=== PATIENT | male | born 1955 | race Caucasian/White ===

== ENCOUNTER 2017-04-17 18:57 | Inpatient (IN) | payer MEDICAID ==
[~2017-04-17] VITALS: Ht 167.6 cm; Wt 83.1 kg
[~2017-04-17 18:57] MED LIST: ATIVAN0.5 M1 PO; METOPROLOL TART25 M1 PO; NOR10 PO; PRI20 PO; ZES20 PO
[2017-04-17 20:47] LABS: CALCIUM 8.8 mg/dL (8.5-10.1); CARBON DIOXIDE 27.6 mmol/L (21-32); CHLORIDE SERUM 100 mmol/L (98-107); CREATININE SERUM 0.5 mg/dL (0.7-1.3); GFR1 > 60 mL/min; GLUCOSE SERUM 110 mg/dL (74-106); SODIUM SERUM 139 mmol/L (136-145)
[2017-04-17 20:49] LABS: BASOPHIL % 0.5 % (0-2)
[2017-04-17 20:52] LABS: ALBUMIN 3.4 g/dL (3.4-5.0); ALKALINE PHOSPHATASE 171 U/L (46-116); ALT/SGPT 34 U/L (16-63); AST/SGOT 122 U/L (15-37); BILIRUBIN TOTAL 2.02 mg/dL (0.20-1.00); LIPASE 182 IU/L (73-393); TOTAL PROTEIN, SERUM 8.8 g/dL (6.4-8.2)
[2017-04-17 20:53] LABS: PLATELET COUNT 77 x10^3mcL (130-400); RED CELL DISTRIBUTION WIDTH 15.4 % (11.5-14.5)
[2017-04-18] VITALS (7 sets, daily range): BP systolic 114–152; BP diastolic 64–91
[2017-04-18 02:22] LABS: PHOSPHOROUS 3.4 mg/dL (2.5-4.9)
[2017-04-18 02:26] LABS: FREE T4 1.53 ng/dL (0.76-1.46); FREE THYROXINE INDEX 3.4 ug/dL (1.4-4.5); T3 TOTAL 1.12 ng/mL; T4(THYROXINE) 10.6 ug/dL (4.7-13.3)
[2017-04-18 02:31] LABS: CHOLESTEROL/HDL RATIO 2.9
[2017-04-18 07:02] LABS: IRON 92 ug/dL (65-170); TOTAL IRON BINDING CAPACITY 236 ug/dL (250-450)
[2017-04-18 07:04] LABS: PLATELET COUNT 73 x10^3mcL (130-400); RED CELL DISTRIBUTION WIDTH 15.3 % (11.5-14.5)
[2017-04-18 07:34] LABS: CALCIUM 7.9 mg/dL (8.5-10.1); CARBON DIOXIDE 25.3 mmol/L (21-32); CHLORIDE SERUM 101 mmol/L (98-107); CREATININE SERUM 0.6 mg/dL (0.7-1.3); GFR1 > 60 mL/min; GLUCOSE SERUM 113 mg/dL (74-106); PHOSPHOROUS 2.9 mg/dL (2.5-4.9); POTASSIUM SERUM 3.2 mmol/L (3.5-5.1); SODIUM SERUM 137 mmol/L (136-145)
[2017-04-18 08:21] LABS: BAND NEUTROPHIL 33 % (0-10); MONOCYTE 3 % (0-7); SEGMENTED NEUTROPHILS 35 % (37-75)
[2017-04-18 08:22] LABS: BASOPHIL 0 % (0-2); METAMYELOCTE 1 % (0-2); PLATELET MORPHOLOGY PLATELETS DECREASED
[2017-04-18 08:23] LABS: rbc morphology (normal/abnorm) ABNORMAL (NORMAL)
[2017-04-18 08:24] LABS: target cell (codocyte) 1+
[2017-04-18 11:05] LABS: microscopic required? YES; urine erythrocyte NEGATIVE (NEGATIVE)
[2017-04-18 11:34] LABS: AMPHETAMINE QUAL UR NONE DETECTED (NEG <=1000)
[2017-04-19 05:36] VITALS: BP 149/85
[2017-04-19 06:37] LABS: BASOPHIL % 1.1 % (0-2)
[2017-04-19 06:43] LABS: CALCIUM 7.8 mg/dL (8.5-10.1); CARBON DIOXIDE 23.9 mmol/L (21-32); CHLORIDE SERUM 104 mmol/L (98-107); CREATININE SERUM 0.5 mg/dL (0.7-1.3); GFR1 > 60 mL/min; GLUCOSE SERUM 105 mg/dL (74-106); MAGNESIUM 1.8 mg/dL (1.8-2.4); PHOSPHOROUS 2.4 mg/dL (2.5-4.9); POTASSIUM SERUM 3.5 mmol/L (3.5-5.1); SODIUM SERUM 138 mmol/L (136-145)
[2017-04-19 06:57] LABS: PLATELET COUNT 83 x10^3mcL (130-400); RED CELL DISTRIBUTION WIDTH 15.3 % (11.5-14.5)
[2017-04-19 08:55] VITALS: BP 149/85
[2017-04-19] MEDS ORDERED: FOL1 PO (09:31)
[2017-04-19] MEDS ORDERED: THI100 PO (09:31)
[2017-04-19] MEDS ORDERED: ATI1 PO (09:31)
[2017-04-19 10:03] VITALS: BP 132/71
== END 2017-04-19 11:30 | disposition home or self-care (01) | DRG 775 ==
LOC: ED 18:57 → DU 23:38
PROVIDERS: Emergency Medicine; ADMIT Family Medicine
DX: F10.229 Alcohol dependence with intoxication, unspecified (principal); N17.0 Acute kidney failure with tubular necrosis; G92 Toxic encephalopathy; E44.0 Moderate protein-calorie malnutrition; E83.42 Hypomagnesemia; E83.39 Other disorders of phosphorus metabolism; D69.59 Other secondary thrombocytopenia; K70.30 Alcoholic cirrhosis of liver without ascites; E11.9 Type 2 diabetes mellitus without complications; D63.8 Anemia in other chronic diseases classified elsewhere; E87.6 Hypokalemia; R31.9 Hematuria, unspecified; E02 Subclinical iodine-deficiency hypothyroidism; T51.0X1A Toxic effect of ethanol, accidental (unintentional), initial encounter; R80.9 Proteinuria, unspecified; E78.5 Hyperlipidemia, unspecified; G31.9 Degenerative disease of nervous system, unspecified; Z68.29 Body mass index [BMI] 29.0-29.9, adult
CPT/HCPCS: 82962; 83880; 84439; C9113; G0480; J2060; J2405; J3411; J3475; J3480; J3490; J7030; J8597; Q0092

== ENCOUNTER 2017-06-25 20:39 | Emergency (ER) | payer SELFPAY ==
[~2017-06-25 20:39] MED LIST changes: +ATI1 PO; +FOL1 PO; +THI100 PO
[2017-06-25 23:00] LABS: PLATELET COUNT 60 x10^3mcL (130-400); RED CELL DISTRIBUTION WIDTH 16.4 % (11.5-14.5)
[2017-06-25 23:05] LABS: CARBON DIOXIDE 28.4 mmol/L (21-32); CHLORIDE SERUM 104 mmol/L (98-107); CREATININE SERUM 0.7 mg/dL (0.7-1.3); GFR1 > 60 mL/min; GLUCOSE SERUM 131 mg/dL (74-106); POTASSIUM SERUM 3.2 mmol/L (3.5-5.1); SODIUM SERUM 144 mmol/L (136-145)
[2017-06-25 23:10] LABS: ALKALINE PHOSPHATASE 157 U/L (46-116); ALT/SGPT 44 U/L (16-63); AST/SGOT 219 U/L (15-37); BILIRUBIN TOTAL 1.7 mg/dL (0.20-1.00); TOTAL PROTEIN, SERUM 8.1 g/dL (6.4-8.2)
[2017-06-25 23:13] LABS: ALBUMIN 3.3 g/dL (3.4-5.0)
[2017-06-25 23:24] VITALS: BP 147/76
== END 2017-06-25 23:24 | disposition home or self-care (01) ==
LOC: ED 20:39
PROVIDERS: Emergency Medicine
DX: F10.129 Alcohol abuse with intoxication, unspecified (principal); I10 Essential (primary) hypertension; R11.10 Vomiting, unspecified; R04.0 Epistaxis
CPT/HCPCS: 36415; Q0162

== ENCOUNTER 2017-06-27 05:49 | Inpatient (IN) | payer SELFPAY ==
[~2017-06-27] VITALS: Ht 167.6 cm; Wt 86.3 kg
[2017-06-27 06:45] LABS: BASOPHIL % 0.9 % (0-2); CALCIUM 8.2 mg/dL (8.5-10.1); CARBON DIOXIDE 25.3 mmol/L (21-32); CHLORIDE SERUM 108 mmol/L (98-107); CREATININE SERUM 0.6 mg/dL (0.7-1.3); GFR1 > 60 mL/min; GLUCOSE SERUM 150 mg/dL (74-106); POTASSIUM SERUM 3.3 mmol/L (3.5-5.1); SODIUM SERUM 148 mmol/L (136-145)
[2017-06-27 06:50] LABS: ALBUMIN 3.3 g/dL (3.4-5.0); ALKALINE PHOSPHATASE 146 U/L (46-116); ALT/SGPT 44 U/L (16-63); AST/SGOT 185 U/L (15-37); BILIRUBIN TOTAL 2.15 mg/dL (0.20-1.00); TOTAL PROTEIN, SERUM 7.9 g/dL (6.4-8.2)
[2017-06-27 07:15] LABS: PLATELET COUNT 64 x10^3mcL (130-400); RED CELL DISTRIBUTION WIDTH 16.8 % (11.5-14.5)
[2017-06-27 09:43] LABS: T3 TOTAL 0.89 ng/mL
[2017-06-27 09:44] LABS: CHOLESTEROL/HDL RATIO 2.3; MAGNESIUM 1.7 mg/dL (1.8-2.4); PHOSPHOROUS 3.6 mg/dL (2.5-4.9)
[2017-06-27 09:49] LABS: FREE T4 1.42 ng/dL (0.76-1.46); FREE THYROXINE INDEX 2.6 ug/dL (1.4-4.5); T4(THYROXINE) 7.5 ug/dL (4.7-13.3)
[2017-06-27 12:39] LABS: microscopic required? YES; urine erythrocyte TRACE (NEGATIVE)
[2017-06-27 12:54] LABS: AMPHETAMINE QUAL UR NONE DETECTED (NEG <=1000)
[2017-06-27 18:35] LABS: BASOPHIL % 0.7 % (0-2)
[2017-06-27 18:38] LABS: CALCIUM 7.7 mg/dL (8.5-10.1); CARBON DIOXIDE 24.4 mmol/L (21-32); CHLORIDE SERUM 105 mmol/L (98-107); CREATININE SERUM 0.5 mg/dL (0.7-1.3); GFR1 > 60 mL/min; GLUCOSE SERUM 103 mg/dL (74-106); MAGNESIUM 1.7 mg/dL (1.8-2.4); POTASSIUM SERUM 3.7 mmol/L (3.5-5.1); SODIUM SERUM 142 mmol/L (136-145)
[2017-06-27 18:46] LABS: PLATELET COUNT 53 x10^3mcL (130-400); RED CELL DISTRIBUTION WIDTH 16.7 % (11.5-14.5)
[2017-06-27 19:51] VITALS: BP 152/77
[2017-06-27 19:54] VITALS: Ht 167.6 cm; Wt 86.3 kg
[2017-06-27 20:40] VITALS: BP 152/77
[2017-06-28 05:40] VITALS: BP 139/85
[2017-06-28 08:24] VITALS: BP 133/72
[2017-06-28 13:25] VITALS: BP 135/68
[2017-06-28 15:36] VITALS: BP 135/68
[2017-06-28 16:50] VITALS: BP 88/52
== END 2017-06-28 17:42 | disposition home or self-care (01) | DRG 441 ==
LOC: ED → DU 17:57
PROVIDERS: Emergency Medicine; Family Medicine
PROC: 2Y41X5Z Packing of Nasal Region using Packing Material (ICD-10-PCS; principal; 2017-06-27)
DX: K72.90 Hepatic failure, unspecified without coma (principal); G92 Toxic encephalopathy; D68.9 Coagulation defect, unspecified; E44.0 Moderate protein-calorie malnutrition; I10 Essential (primary) hypertension; F10.229 Alcohol dependence with intoxication, unspecified; Y90.9 Presence of alcohol in blood, level not specified; K70.30 Alcoholic cirrhosis of liver without ascites; Z83.3 Family history of diabetes mellitus; E83.42 Hypomagnesemia; E87.6 Hypokalemia; Z68.33 Body mass index [BMI] 33.0-33.9, adult
CPT/HCPCS: 83880; 84439; G0480; J2060; J3411; J3430; J3475; J3480; J3490; J7030; Q0092

== ENCOUNTER 2017-11-27 19:28 | Inpatient (IN) | payer SELFPAY ==
[~2017-11-27] VITALS: Ht 167.6 cm; Wt 99.8 kg
[2017-11-27 19:33] VITALS: Ht 167.6 cm; Wt 99.8 kg
[2017-11-27 21:07] LABS: BASOPHIL % 0.5 % (0-2); PLATELET COUNT 211 x10^3mcL (130-400)
[2017-11-27 21:08] LABS: RED CELL DISTRIBUTION WIDTH 18.3 % (11.5-14.5)
[2017-11-27 21:18] LABS: CARBON DIOXIDE 25.6 mmol/L (21-32); CHLORIDE SERUM 102 mmol/L (98-107); CREATININE SERUM 0.6 mg/dL (0.7-1.3); GFR1 > 60 mL/min; GLUCOSE SERUM 103 mg/dL (74-106); POTASSIUM SERUM 3.7 mmol/L (3.5-5.1); SODIUM SERUM 138 mmol/L (136-145)
[2017-11-27 21:22] LABS: ALBUMIN 2.1 g/dL (3.4-5.0); ALKALINE PHOSPHATASE 252 U/L (46-116); ALT/SGPT 34 U/L (16-63); AMYLASE 33 U/L (25-115); AST/SGOT 121 U/L (15-37); BILIRUBIN TOTAL 3.01 mg/dL (0.20-1.00); LIPASE 165 IU/L (73-393); TOTAL PROTEIN, SERUM 7.6 g/dL (6.4-8.2)
[2017-11-28] VITALS (8 sets, daily range): BP systolic 137–168; BP diastolic 80–95
[2017-11-28 02:42] LABS: microscopic required? YES; urine erythrocyte NEGATIVE (NEGATIVE)
[2017-11-28 03:00] LABS: AMPHETAMINE QUAL UR NONE DETECTED (See below)
[2017-11-28 03:08] LABS: PHOSPHOROUS 3.1 mg/dL (2.5-4.9)
[2017-11-28 04:05] LABS: CHOLESTEROL/HDL RATIO 5.6
[2017-11-28 07:23] LABS: FREE T4 1.74 ng/dL (0.76-1.46); FREE THYROXINE INDEX 3.1 ug/dL (1.4-4.5); T4(THYROXINE) 8.4 ug/dL (4.7-13.3)
[2017-11-28 07:50] LABS: BASOPHIL % 0.3 % (0-2); PLATELET COUNT 194 x10^3mcL (130-400)
[2017-11-28 07:55] LABS: RED CELL DISTRIBUTION WIDTH 18.4 % (11.5-14.5)
[2017-11-28 08:04] LABS: CALCIUM 8.4 mg/dL (8.5-10.1); CARBON DIOXIDE 28.1 mmol/L (21-32); CHLORIDE SERUM 103 mmol/L (98-107); CREATININE SERUM 0.6 mg/dL (0.7-1.3); GFR1 > 60 mL/min; GLUCOSE SERUM 111 mg/dL (74-106); POTASSIUM SERUM 3.2 mmol/L (3.5-5.1); SODIUM SERUM 139 mmol/L (136-145)
[2017-11-28 09:32] LABS: T3 TOTAL 0.89 ng/mL
[2017-11-28 13:18] LABS: APPEARANCE FLUID CLEAR; COLOR FLUID YELLOW; SOURCE FLUID PARACENTESIS
[2017-11-28 13:19] LABS: LYMPHOCYTE FLUID 80 %; MONOCYTE FLUID 2 %; RBC FLUID 982 /cumm; WBC FLUID 87 /cumm
[2017-11-29 05:54] VITALS: BP 142/77
[2017-11-29 06:24] LABS: CALCIUM 7.4 mg/dL (8.5-10.1); CHLORIDE SERUM 105 mmol/L (98-107); CREATININE SERUM 0.6 mg/dL (0.7-1.3); GFR1 > 60 mL/min; GLUCOSE SERUM 99 mg/dL (74-106); MAGNESIUM 1.7 mg/dL (1.8-2.4); PHOSPHOROUS 3.7 mg/dL (2.5-4.9); SODIUM SERUM 137 mmol/L (136-145)
[2017-11-29 06:33] LABS: PLATELET COUNT 183 x10^3mcL (130-400)
[2017-11-29 06:51] LABS: RED CELL DISTRIBUTION WIDTH 17.6 % (11.5-14.5)
[2017-11-29 09:00] VITALS: BP 127/72
[2017-11-29 09:41] LABS: BAND NEUTROPHIL 36 % (0-10); BASOPHIL 0 % (0-2); MONOCYTE 4 % (0-7); SEGMENTED NEUTROPHILS 45 % (37-75)
[2017-11-29 09:44] LABS: rbc morphology (normal/abnorm) ABNORMAL (NORMAL)
[2017-11-29 09:45] LABS: PLATELET MORPHOLOGY LARGE PLATELET SEEN; target cell (codocyte) 1+; tear drop cell (dacryocyte) 1+
[2017-11-29 13:45] VITALS: BP 111/64
[2017-11-29] MEDS ORDERED: HYDROCHLOROTHIA50 MG PO (14:05)
[2017-11-29] MEDS ORDERED: FLA500 PO (14:09)
[2017-11-29] MEDS ORDERED: LEVAQUIN750 MG PO (14:15)
[2017-11-29 14:24] VITALS: BP 111/64
[2017-11-29] MEDS ORDERED: LIB25 PO (15:22)
== END 2017-11-29 15:20 | disposition home or self-care (01) | DRG 432 ==
LOC: ED 19:28 → DU 11-28 01:46
PROVIDERS: Emergency Medicine; General Practice
PROC: 0W9G3ZZ Drainage of Peritoneal Cavity, Percutaneous Approach (ICD-10-PCS; principal; 2017-11-28)
DX: K70.31 Alcoholic cirrhosis of liver with ascites (principal); E43 Unspecified severe protein-calorie malnutrition; N17.0 Acute kidney failure with tubular necrosis; K76.6 Portal hypertension; K72.90 Hepatic failure, unspecified without coma; I10 Essential (primary) hypertension; F10.10 Alcohol abuse, uncomplicated; Y90.2 Blood alcohol level of 40-59 mg/100 ml; E83.51 Hypocalcemia; E80.7 Disorder of bilirubin metabolism, unspecified; D63.8 Anemia in other chronic diseases classified elsewhere; Z68.32 Body mass index [BMI] 32.0-32.9, adult; Z83.3 Family history of diabetes mellitus; Z79.899 Other long term (current) drug therapy
CPT/HCPCS: 83880; 84439; G0480; J0696; J1940; J2001; J2543; J2765; J3490; J7050; P9047; Q0092